=== PATIENT | male | born 1985 | race Caucasian/White ===

== ENCOUNTER 2019-09-02 05:00 | Emergency (ER) | payer SELFPAY ==
[~2019-09-02] VITALS: Ht 172.7 cm; Wt 77.3 kg
[2019-09-02 05:14] VITALS: BP 141/83; TEMP 97.7
[2019-09-02 05:57] VITALS: PULSE 109
== END 2019-09-02 05:57 | disposition home or self-care (01) ==
LOC: COL.ER 05:00
DX: L98.9 Disorder of the skin and subcutaneous tissue, unspecified (principal); F17.210 Nicotine dependence, cigarettes, uncomplicated

== ENCOUNTER 2019-10-24 23:31 | Emergency (ER) | payer SELFPAY ==
[~2019-10-24] VITALS: Ht 172.7 cm; Wt 77.3 kg
[2019-10-24 23:33] VITALS: TEMP 97.8
[2019-10-25 00:02] LABS: BASO % 0.3 % (0.0-2.0); EOS # 0.2 (0.0-0.7); EOS % 1.1 % (0-4.0); GRAN # 9.2 (1.4-6.5); GRAN % 65.5 % (42.2-75.2); LYMPH # 3.2 (1.2-3.4); LYMPH % 22.7 % (20.0-51.0); MEAN CELL VOLUME 92 fl (80.0-100.0); MEAN CORPUSCULAR HEMOGLOBIN 30 pg (27.0-31.0); MEAN CORPUSCULAR HGB CONC 33 g/dl (33.0-37.0); MEAN PLATELET VOLUME 9.4 fl (7.4-10.4); MONO # 1.4 (0.1-0.6); PLATELET COUNT 335 K/mm3 (130-400); REDCELL DISTRIBUTION WIDTH-CV 12.2 % (11.5-14.5)
[2019-10-25 00:06] LABS: PROTHROMBIN TIME 11.2 SECONDS (9.7-12.8)
[2019-10-25 00:13] LABS: ALANINE AMINOTRANSFERASE 17 U/L (21-72); ALBUMIN 3.9 gm/dL (3.5-5.0); ALKALINE PHOSPHATASE 54 U/L (50-136); ANION GAP 10 mmol/L (7-16); AST,SGOT 21 U/L (15-37); BILIRUBIN,TOTAL 0.2 mg/dL (0.0-1.0); BLOOD UREA NITROGEN 23 mg/dL (9-20); CALCIUM 8.8 mg/dL (8.4-10.2); CARBON DIOXIDE 24 mmol/L (22-30); CHLORIDE 108 mmol/L (98-107); CREATININE, serum 0.84 (0.66-1.25); GLUCOSE 102 mg/dL (74-106); POTASSIUM 3.9 mmol/L (3.4-5.0); SODIUM 141 mmol/L (137-145); TOTAL PROTEIN 6.7 gm/dL (6.4-8.2)
[2019-10-25 00:24] LABS: TROPONIN-I < 0.012 ng/mL (0.000-0.035)
[2019-10-25 00:41] LABS: TRICYCLIC ANTIDEPRESS URINE NEGATIVE
[2019-10-25 01:11] LABS: COLLECTION METHOD CLEAN CATCH
[2019-10-25 02:03] LABS: PH 6 (5-8); SQUAMOUS EPITHELIAL None Seen /hpf; URINE APPEARANCE Clear; URINE BACTERIA None Seen /hpf; URINE BILIRUBIN Negative (NEGATIVE); URINE BLOOD Negative (NEGATIVE); URINE COLOR Yellow; URINE GLUCOSE Negative (NEGATIVE); URINE KETONE Negative (NEGATIVE); URINE LEUKOCYTE ESTERASE Negative (NEGATIVE); URINE NITRATE Negative (NEGATIVE); URINE PROTEIN(semi-quant) Negative (NEGATIVE); URINE RBC None Seen /hpf; URINE UROBILINOGEN Negative (NEGATIVE)
[2019-10-25 12:00] VITALS: BP 128/86; PULSE 79
--- NOTE | 2019-10-25 16:45 | NUR ---
[employer] student responded to a dialysis social worker consult for the patient due to needing detox. TEACHERS AIDE student met with the patient to discuss options. [facility] in [place] has a male detox bed available. The patient's data steward, Joaquim was agreeable to transporting the patient this day after 4pm to [place] to [address] [place] [address]. [employer] student collaborated the above information with the patient's nurse.
== END 2019-10-25 12:00 | disposition home or self-care (01) ==
LOC: COL.ER 23:31
PROVIDERS: Emergency Medicine
DX: R07.89 Other chest pain (principal); F17.210 Nicotine dependence, cigarettes, uncomplicated
CPT/HCPCS: J1200; J1885; J2060; J7030

== ENCOUNTER 2020-05-03 10:42 | Emergency (ER) | payer SELFPAY ==
[~2020-05-03] VITALS: Ht 172.7 cm; Wt 81.8 kg
[2020-05-03 10:48] VITALS: BP 134/71; TEMP 97.8
[2020-05-03] MEDS ORDERED: PREDNISONE20 MG PO (11:25)
[2020-05-03 11:33] VITALS: PULSE 78
== END 2020-05-03 11:36 | disposition home or self-care (01) ==
LOC: COL.ER 10:42
DX: L23.7 Allergic contact dermatitis due to plants, except food (principal); F17.210 Nicotine dependence, cigarettes, uncomplicated
CPT/HCPCS: J1100

== ENCOUNTER 2020-08-20 18:15 | Emergency (ER) | payer SELFPAY ==
[~2020-08-20] VITALS: Ht 172.7 cm; Wt 7.7 kg
[~2020-08-20 18:15] MED LIST: PREDNISONE20 MG PO
[2020-08-20 19:13] LABS: COLLECTION METHOD CLEAN CATCH
[2020-08-20 19:15] LABS: BASO % 0.3 % (0.0-2.0); EOS # 0.2 (0.0-0.7); EOS % 1.7 % (0-4.0); GRAN # 7.1 (1.4-6.5); GRAN % 65.8 % (42.2-75.2); HEMATOCRIT 38.3 % (42.0-52.0); HEMOGLOBIN 12.9 g/dl (13.5-18.0); LYMPH # 2.2 (1.2-3.4); LYMPH % 20.2 % (20.0-51.0); MEAN CELL VOLUME 89 fl (80.0-100.0); MEAN CORPUSCULAR HEMOGLOBIN 30 pg (27.0-31.0); MEAN CORPUSCULAR HGB CONC 34 g/dl (33.0-37.0); MEAN PLATELET VOLUME 9.3 fl (7.4-10.4); MONO # 1.3 (0.1-0.6); MONO % 11.7 % (1.7-9.3); PLATELET COUNT 315 K/mm3 (130-400); RED BLOOD COUNT 4.29 M/mm3 (4.20-5.60); REDCELL DISTRIBUTION WIDTH-CV 12.5 % (11.5-14.5)
[2020-08-20 19:23] LABS: MUCOUS Present /lpf; PH 5 (5-8); SQUAMOUS EPITHELIAL 0-2 /hpf; URINE APPEARANCE Hazy; URINE BACTERIA None Seen /hpf; URINE BILIRUBIN Negative (NEGATIVE); URINE BLOOD Negative (NEGATIVE); URINE COLOR Yellow; URINE GLUCOSE Negative (NEGATIVE); URINE KETONE Negative (NEGATIVE); URINE LEUKOCYTE ESTERASE Negative (NEGATIVE); URINE NITRATE Negative (NEGATIVE); URINE PROTEIN(semi-quant) Negative (NEGATIVE); URINE RBC 0-2 /hpf; URINE UROBILINOGEN Negative (NEGATIVE)
[2020-08-20 19:29] LABS: TRICYCLIC ANTIDEPRESS URINE NEGATIVE
[2020-08-20 19:31] LABS: ACETAMINOPHEN < 10 ug/mL (10-30); ALANINE AMINOTRANSFERASE 14 U/L (4-49); ALBUMIN 3.8 gm/dL (3.5-5.0); ALKALINE PHOSPHATASE 60 U/L (50-136); ANION GAP 6 mmol/L (7-16); AST,SGOT 29 U/L (15-37); BILIRUBIN,TOTAL 0.2 mg/dL (0.0-1.0); BLOOD UREA NITROGEN 23 mg/dL (9-20); CALCIUM 8.5 mg/dL (8.4-10.2); CARBON DIOXIDE 29 mmol/L (22-30); CHLORIDE 104 mmol/L (98-107); CREATININE, serum 0.94 (0.66-1.25); GLUCOSE 95 mg/dL (74-106); SODIUM 138 mmol/L (137-145); TOTAL PROTEIN 6.5 gm/dL (6.4-8.2)
[2020-08-20 19:32] LABS: ALCOHOL(ethanol),MEDICAL < 10 mg/dL; SALICYLATE < 1.0 mg/dL
[2020-08-21 10:46] VITALS: BP 152/75; PULSE 85; TEMP 98.7
== END 2020-08-21 10:46 ==
LOC: COL.ER 18:15
PROVIDERS: Emergency Medicine
DX: F15.10 Other stimulant abuse, uncomplicated (principal); Z20.828 Contact with and (suspected) exposure to other viral communicable diseases
CPT/HCPCS: J7030

== ENCOUNTER 2020-09-26 09:05 | Emergency (ER) | payer SELFPAY ==
[~2020-09-26] VITALS: Ht 172.7 cm; Wt 81.8 kg
[2020-09-26 09:07] VITALS: BP 132/83; PULSE 116; TEMP 99.2
[2020-09-26] MEDS ORDERED: MOTRIN 400400 MG/TAB PO (10:38)
== END 2020-09-26 10:30 | disposition left against medical advice (07) ==
LOC: COL.ER 09:05
DX: S00.03XA Contusion of scalp, initial encounter (principal); Z88.6 Allergy status to analgesic agent; Z79.52 Long term (current) use of systemic steroids; V19.40XA Pedal cycle driver injured in collision with unspecified motor vehicles in traffic accident, initial encounter